=== PATIENT | male | born 1950 | race Caucasian/White ===

== ENCOUNTER 2018-01-23 05:27 | Emergency (ER) | payer MEDICARE ==
[2018-01-23] MEDS ORDERED: Nitroglycerin 0.4 MG TAB (25 Tab Bottle) ONE (05:44)
[2018-01-23 05:56] LABS: Hemoglobin 15.6 g/dL (14.0-18.0); Mean Corpuscular HGB CONC 37.8 g/dL (32.0-36.0); Mean Corpuscular Hemoglobin 31.1 pg (27.0-31.0); Mean Corpuscular Volume 82.2 fl (80.0-94.0); Mean Platelet Volume 6.8 fL (7.4-10.4); Platelet Count 156 thou/uL (130-400); RBC Distribution Width 11.7 % (11.5-14.5); Red Blood Cell (RBC) Count 5.01 mill/uL (4.70-6.10); White Blood Cell (WBC) Count 9.9 thou/uL (4.8-10.8)
[2018-01-23] MEDS ORDERED: Nitroglycerin 2% Ointment 1 INCH/1 GM Packet ONE (06:01)
[2018-01-23] MEDS ORDERED: Acetaminophen 500 MG TAB ONE (06:01)
[2018-01-23 06:05] LABS: ALT (SGPT) 35 U/L (8-55); AST (SGOT) 110 U/L (5-34); Albumin 3.9 g/dL (3.4-4.8); Alkaline Phosphatase 73 U/L (40-150); Anion Gap 14 mmol/L (10-20); BUN (Urea Nitrogen) 16 mg/dL (8.4-25.7); Bilirubin, Total 0.6 mg/dL (0.2-1.2); Calc. Creatinine Clearance 0 mL/min (70-130); Calcium 8.8 mg/dL (7.8-10.44); Carbon Dioxide 23 mmol/L (23-31); Chloride 104 mmol/L (98-107); Estimated GFR-MDRD 85; Globulin 2.9 g/dL (2.4-3.5); Glucose 130 mg/dL (80-115); Lipase 14 U/L (8-78); Protein, Total 6.8 g/dL (5.8-8.1); Sodium 137 mmol/L (136-145)
[2018-01-23 06:12] LABS: #Basophils 0.1 thou/uL (0.0-0.2); #Eosinphils 0.1 thou/uL (0.0-0.7); #Lymphocytes 2.7 thou/uL (1.20-3.40); #Monocytes 0.7 thou/uL (0.11-0.59); #Neutrophils 6.3 thou/uL (1.40-6.50); %Basophils 0.6 % (0.0-1.0); %Eosinophils 1.2 % (0.0-10.0); %Lymphocytes 26.9 % (21.0-51.0); %Neutrophils 64.2 % (42.0-75.0); PLT Morphology Comment Appears Adequate; RBC Morphology Normal
[2018-01-23 06:15] LABS: CKMB 107.6 ng/mL (0-6.6); Manual Diff?? NO
[2018-01-23 06:16] LABS: MDiff Complete? YES
[2018-01-23] MEDS ORDERED: Enoxaparin Sodium 100 MG/ML SYRINGE ONE (06:16)
--- NOTE | 2018-01-23 09:45 | RAD ---
PORTABLE CHEST: Date: 01-23-18 Time: [id number] FINDINGS: There is a normal sized heart and clear lungs. No infiltrate or effusion was seen. The mediastinum ap pears normal and the trachea is midline. IMPRESSION: No acute finding. POS: HOME
== END 2018-01-23 06:53 | disposition short-term general hospital (02) ==
LOC: BURERS 05:27
DX: I21.4 Non-ST elevation (NSTEMI) myocardial infarction (principal); Z85.828 Personal history of other malignant neoplasm of skin
CPT/HCPCS: 71045; 80053; 82553; 83690; 84484; 85025; 93005; 96360; 96372; J1650

== ENCOUNTER 2018-05-08 15:55 | Emergency (ER) | payer MEDICARE ==
[2018-05-08 16:35] LABS: #Basophils 0.1 thou/uL (0.0-0.2); #Eosinphils 0.1 thou/uL (0.0-0.7); #Lymphocytes 2.9 thou/uL (1.20-3.40); #Monocytes 0.4 thou/uL (0.11-0.59); #Neutrophils 3.3 thou/uL (1.40-6.50); %Basophils 0.9 % (0.0-1.0); %Eosinophils 1.5 % (0.0-10.0); %Lymphocytes 43.2 % (21.0-51.0); %Monocytes 5.3 % (0.0-10.0); Hemoglobin 13.4 g/dL (14.0-18.0); MDiff Complete? YES; Mean Corpuscular HGB CONC 36.4 g/dL (32.0-36.0); Mean Corpuscular Hemoglobin 28.3 pg (27.0-31.0); Mean Corpuscular Volume 77.8 fL (78.0-98.0); Mean Platelet Volume 5.2 fL (7.4-10.4); Platelet Count 118 thou/uL (130-400); RBC Distribution Width 10.9 % (11.5-14.5); Red Blood Cell (RBC) Count 4.73 mill/uL (4.70-6.10); White Blood Cell (WBC) Count 6.7 thou/uL (4.8-10.8)
[2018-05-08 16:38] LABS: ALT (SGPT) 24 U/L (8-55); AST (SGOT) 19 U/L (5-34); Albumin 4.2 g/dL (3.4-4.8); Alkaline Phosphatase 75 U/L (40-150); Anion Gap 14 mmol/L (10-20); BUN (Urea Nitrogen) 12 mg/dL (8.4-25.7); Bilirubin, Total 0.5 mg/dL (0.2-1.2); Calc. Creatinine Clearance 0 mL/min (70-130); Calcium 8.9 mg/dL (7.8-10.44); Carbon Dioxide 23 mmol/L (23-31); Chloride 107 mmol/L (98-107); Estimated GFR-MDRD 88; Globulin 2.5 g/dL (2.4-3.5); Glucose 99 mg/dL (80-115); Potassium 4.1 mmol/L (3.5-5.1); Protein, Total 6.7 g/dL (5.8-8.1); Sodium 140 mmol/L (136-145)
[2018-05-08 16:39] LABS: CKMB 1.1 ng/mL (0-6.6); Troponin I Less than 0.010 ng/mL (< 0.028)
[2018-05-08] MEDS ORDERED: Acetaminophen 325 MG TAB ONE (17:34)
[2018-05-08 18:35] LABS: Troponin I Less than 0.010 ng/mL (< 0.028)
== END 2018-05-08 18:50 | disposition home or self-care (01) ==
LOC: BURERS 15:55
DX: R07.9 Chest pain, unspecified (principal); R51 Headache; I25.2 Old myocardial infarction; E78.5 Hyperlipidemia, unspecified; I10 Essential (primary) hypertension; Z79.82 Long term (current) use of aspirin; Z79.899 Other long term (current) drug therapy
CPT/HCPCS: 80053; 82553; 83880; 84484; 85025; 93005; 96360